=== PATIENT | male | born 1995 | race Caucasian/White ===

== ENCOUNTER 2025-07-19 15:59 | Outpatient (OUT) | payer OTHER, SELFPAY ==
--- OUTSIDE RECORDS SUMMARY | 2021-04-28 09:45 | XMS_ITS | Continuity of Care Document ---
Author Organization [facility] Address [address] [place] [address] Phone Care Team Providers Care Cigarette Roller Name Role Phone Cole Butcher Unavailable Unavailable Procedures Procedure Date COVID-19 Antigen Test Covid Testing [facility] Advance Directives Directive Yes / No Effective Date File Name No Information Encounters Encounter Description Practice Location Reason(s) For Visit Diagnoses Date Provider Providers Copied on Encounter [facility], [address] [place] [place], [place], [id number], [place] tel:[phone] COVID [facility] Encounter For Screening For Covid-19Enc ounter for screening for other viral diseases Stacey Connelly. [address] [place] [place], [place], [id number], [place]. tel:[phone] Family History Family Member Type Diagnosis Age At Onset No Information Payers Payer name Insurance type Covered republican ID Authoriza tion(s) Medical [place] CI [id number] Social History Type Description Quantity Date Captured [...]
[2025-07-19 16:18] LABS: Hematocrit 46.5 % (42.0-54.0); Hemoglobin 16.5 g/dL (14.0-18.0); Immature Granulocytes Abs Auto 0.02 10^3/uL (0.00-0.03); Immature Granulocytes Pct Auto 0.2 % (0.0-0.5); Lymphocytes Absolute Auto 2.2 10^3/uL (1.2-3.8); Mean Corpuscular HGB Conc 35.5 g/dL (29.9-35.2); Mean Corpuscular Hemoglobin 29.5 pg (25.9-34.0); Mean Corpuscular Volume 83.0 fL (80.0-94.0); Platelet Count 381 10^3/uL (150-450); Red Blood Count 5.60 10^6/uL (4.70-6.10); White Blood Count 9.0 10^3/uL (4.0-11.0)
[2025-07-19 16:49] LABS: Alanine Aminotransferase 39 U/L (16-63); Albumin Globulin Ratio 1.2; Albumin Level 4.4 g/dL (3.4-5.0); Alkaline Phosphatase 77 U/L (46-116); Anion Gap 17.9; Aspartate Amino Transferase 15 U/L (15-37); Blood Urea Nitrogen 13.0 mg/dL (7.0-18.0); Calcium 9.4 mg/dL (8.5-10.1); Carbon Dioxide 23.6 mmol/L (21.0-32.0); Chloride 105 mmol/L (98-107); Cholesterol 211 mg/dL (<=200); Estimated GFR (African America >60 (>=60 mL/min/1.73m^2); Estimated GFR (Non-African Ame >60 (>=60 mL/min/1.73m^2); Free T3 2.62 pg/mL (2.18-3.98); Globulin 3.7 g/dL; Glucose 102 mg/dL (74-106); HDL Cholesterol 61 mg/dL (40-60); Potassium 3.5 mmol/L (3.5-5.1); Sodium 143 mmol/L (136-145); Thyroid Stimulating Hormone 3.132 uIU/mL (0.358-3.740); Total Protein 8.1 g/dL (6.4-8.2); Triglycerides 57 mg/dL (<=150); VLDL CHOLESTEROL 11.4 mg/dL
== END 2025-07-19 16:00 | disposition home or self-care (01) ==
PROVIDERS: PCP Family Medicine; Visit Provider Family Medicine
DX: Z00.00 Encounter for general adult medical examination without abnormal findings (principal); E78.5 Hyperlipidemia, unspecified; R73.09 Other abnormal glucose; E03.9 Hypothyroidism, unspecified; Z79.899 Other long term (current) drug therapy; D64.9 Anemia, unspecified
CPT/HCPCS: 36415; 80053; 80061; 83036; 83525; 84436; 84443; 84481; 85025

== ENCOUNTER 2025-08-23 09:24 | Outpatient (OUT) | payer OTHER, SELFPAY ==
--- OUTSIDE RECORDS SUMMARY | 2021-04-28 09:45 | XMS_ITS | Continuity of Care Document ---
Author Organization [facility] Address [address] [place] [address] Phone Care Team Providers Care Security Sergeant Name Role Phone Cole Butcher Unavailable Unavailable Procedures Procedure Date COVID-19 Antigen Test Covid Testing [facility] Advance Directives Directive Yes / No Effective Date File Name No Information Encounters Encounter Description Practice Location Reason(s) For Visit Diagnoses Date Provider Providers Copied on Encounter [facility], [address], [place], [id number], [place] tel:[phone] COVID [facility] Encounter For Screening For Covid-19Enc ounter for screening for other viral diseases Stacey Connelly. [address], [place], [id number], [place]. tel:[phone] Family History Family Member Type Diagnosis Age At Onset No Information Payers Payer name Insurance type Covered constitution party ID Authoriza tion(s) Medical [place] CI [id number] Social History Type Description Quantity Date Captured Comments Alcohol Use Details Unknown Caffeine Use Details Unknown Tobacco Use Status No Information Smoking Status No Information Sex Male Sexual Orientation Straight or heterosexual Gender Identity Male Chief Complaint And Reason For Visit No Information Reason For Referral Reason For Referral No Information History Of Present Illness Encounter Date Complaint History Of Prese nt Illness No Information Functional Status Date Functional Assessmen t No Information Instructions Date Instruction Additional Infor mation No Information Assessments Type Assessment Date assessment Encounter For Screening For Covi d-19 assessment Encounter for screening for othe r viral diseases Patient Care Teams Name Effective Dates (start - stop) Status Members No Information
--- OUTSIDE RECORDS SUMMARY | 2025-08-23 09:30 | XMS_ITS | Patient Health Record ---
Author Organization [facility] [place] Address [address] [place] [address] Care Team Providers Care Delivery Clerk Name Role Phone Angel Lim Primary Care Provider [phone] Allergies No Known Allergies Results Component Value Reference Range Notes INSULIN Reviewed date:07/21/2025 12:54:23 PM Interpretation: Performing Lab: Notes/Report: [facility] , Insulin 15.6 2.6-24.9 uIU/mL Framing Mechanic: Femi Luna PhD, Phone: [phone] [address], [place] [id number] [facility] Performing Lab: see note - [facility] LBTSH Reviewed date:07/20/2025 08:05:35 AM Interpretation: Performing Lab: Notes/Report: [facility] ,Thyroid Stimulating Hormone3.1320.358-3.740 uIU/mLPerforming Lab:see noteML - [facility] LBT4 Reviewed date:07/20/2025 08:05:35 AM Interpretation: Performing Lab: Notes/Report: [facility] ,T4 Pxfpiuugb10.304.50-12.10 ug/dLPerforming Lab:see noteML - [facility] LBPROF 14(COMP METB) Reviewed date:07/20/2025 08:05:35 AM Interpretation: Performing Lab: Notes/Report: [facility] ,Emlyqa247711-199 mmol/LPotassium3.53.5-5.1 mmol/GObbdoduu83629-834 mmol/LCarbon Nvlosbm88.621.0-32.0 mmol/LAnion Gap17.9Sgsggcu99532-011 mg/dLBlood Urea Odpguubt66.07.0-18.0 mg/dLCreatinine0.960.70-1.30 mg/dLEstimated GFR ( Corrie>60>=60 mL/min/1.73m 2Estimated GFR (Non- Renetta>60>=60 mL/min/1.73m 2BUN Creatinine Ratio13.8Zpzdvtn1.48.5-10.1 mg/dLBilirubin Total0.70.2-1.0 mg/dL Aspartate Amino Upjhjdqrysx7012-87 U/LAlanine Wmzrkffunvfhxdwd1927-67 U/L Alkaline Kdrylpldatn6990-367 U/LTotal Protein8.16.4-8.2 g/dLAlbumin Level4.43.4- 5.0 g/dLGlobulin3.7Albumin Globulin Ratio1.2Performing Lab:see noteML - [facility] LBLIPID PROFILE Reviewed date:07/20/2025 08:05:35 AM Interpretation: Performing Lab: Notes/Report: [facility] ,Wihysbzutnjdb48<=150 mg/oTXbevfqsyjmo762<=200 mg/dLHDL Nzfuwetshuw8260-48 mg/dL <40 mg/dl - HIGH CARDIOVASCULAR RISK > or =60 mg/dl - LOW CARDIOVASCULAR RISK LDL Cholesterol Kskyiejlph263.0 <100 mg/dl OPTIMAL 160-189 mg/dl HIGH 100-129 mg/dl NEAR OR ABOVE OPTIMAL >190 mg/dl VERY HIGH 130-159 mg/dl BORDERLINE HIGH VLDL QKKXSIDEHVQ90.4Chol HDL Ratio3.5 >11.0 HIGH RISK 4.4 - 7.1 AVERAGE RISK 7.1 - 11.0 MODERATE RISK 3.3 - 4.4 LOW RISK Performing Lab:see note - [facility] LBGLYCOHEMOGLOBIN A1C Reviewed date:07/19/2025 07:29:59 PM Interpretation: Performing Lab: Notes/Report: [facility] ,Glycohemoglobin A1C5.24.5-6.2 % > 7.0 ADA THERAPEUTIC TARGET < 7.0 ADA RECOMMENDED LIMIT 4.0 - 6.0 ACTION SUGGESTED Estimated Average Kioskgr702Tiuqpchpar Lab:see noteML - [facility] LB FREE T3 Reviewed date:07/20/2025 08:05:35 AM Interpretation: Performing Lab: Notes/Report: [facility] ,Free T32.622.18-3.98 pg/mLPerforming Lab:see noteML - [facility] LB CBC AUTO DIFF Reviewed date:07/19/2025 07:29:59 PM Interpretation: Performing Lab: Notes/Report: [facility] ,White Blood Count9.04.0-11.0 10 3/uLRed Blood Count5.604.70-6.10 10 6/uL Iqebvjwrrq97.514.0-18.0 g/jNGogkioxtha88.542.0-54.0 %Mean Corpuscular Dzwgji74.0 80.0-94.0 fLMean Corpuscular Rdweaugsec37.525.9-34.0 pgMean Corpuscular HGB Conc 35.529.9-35.2 g/dLRed Cell Distribution Width12.211.0-15.0 %Platelet Upcwg797 150-450 10 3/uLMean Platelet Volume9.39.5-13.5 fLNeutrophils Percent Auto68.4 43.0-75.0 %Lymphocytes Percent Auto24.520.5-60.0 %Monocytes Percent Auto6.31.7- 12.0 %Eosinophils Percent Auto0.20.9-7.0 %Basophils Percent Auto0.40.2-2.0 % Immature Granulocytes Pct Auto0.20.0-0.5 %Neutrophils Absolute Auto6.11.4-6.5 10 3/uLLymphocytes Absolute Auto2.21.2-3.8 10 3/uLMonocytes Absolute Auto0.60.3-0.8 10 3/uLEosinophils Absolute Auto0.00.0-0.7 10 3/uLBasophils Absolute Auto0.00.0- 0.1 10 3/uLImmature Granulocytes Abs Auto0.020.00-0.03 10 3/uLPerforming Lab:see noteML - [facility] LB Reason For Referral No Information Medications Medication SIG (Take, Route, Frequency, Duration) Notes Start Date End Date Status Pristiq 100 MG 1 tablet Orally Once a day; Dura tion: 30 days 5Active Social History Tobacco Use: Social History Observation Description Date Details (start date - stop date) Never Smoker NA - NA Tobacco Control (Standard) Question Answer Notes Tobacco use: Nonsmoker AUDIT-C (Standard) Question Answer Notes Did you have a drink containing alcohol in the p ast year? Yes How often did you have a drink containing alcohol in the past year?Monthly or less (1 point)How many drinks did you have on a typical day when you were drinking in the past year?1 or 2 drinks (0 point)How often did you have six or more drinks on one occasion in the past year?2 to 4 times a month (2 points) Jvhnwx3GnjqhtypkvqykuLfnqnhzv Problems Problem Type SNOMED Code ICD Code Onset Dates Problem Status W/U Status Risk Notes Problem Hypothyroidism (02169083) Hypothyroidism (E03.9) ActiveconfirmedProblemAnxiety (23733207)Anxiety (F41.9)Activeconfirmed Vital Signs Blood pressure diastolic 74 mm Hg 07/19/2025 Iicsmj94 in07/19/2025lood pressure aijupjkc168 mm Hg07/19/20256895Sikdhp425 lbs 07/19/2025BMI26.31 kg/m207/19/2025 Encounters Encounter Location Date Provider Diagnosis [address] [address] 07/19/2025 Angel Hoy Anxiety F41.9 and We ll adult Z00.[address] [address] 07/19/2025 Angel Hoy Hypothyroidism E03.[address] [address] 08/03/2025 Angel Hoy Anxiety F41.9 Assessments Encounter Date Diagnosis (ICD Code) Assessment Notes Treatment Notes Treatment Clinical Notes Section Notes 07/19/2025 Anxiety (ICD-10 - F41.9) defers on tpwkhrndec83/24/2025Well adult (ICD-10 - Z00.00)07/19/2025 Hypothyroidism (ICD-10 - E03.9)08/03/2025nxiety (ICD-10 - F41.9) Plan Of Treatment Pending Test Test Name Order Date HEMOGLOBIN A1C (GLYCO) 07/19/2025 INSULIN, TOTAL 07/19/2025 LIPID PANEL (CHOL/TRIG/HDL/LDL) 07/19/20 25 THYROID ANTIBODIES 07/19/2025 THYROID PANEL (T4/TSH/FREE T3) 5 THYROID PANEL (T4/TSH/FREE T3) 5 CMP (COMP MET DOCKERY) w/eGFR CKD-EPI 2024 CBC WITH DIFF 07/19/2025 Insurance Providers Payer Name Payer Address Payer Phone Subscriber Number Group Number Insured Name Patient Relationship to Insured Coverage Start Date Coverage End Date MMO [employer] P[employer] [address] [address] [place] [address] [id number] Kennedy Millan - patient is the spouse of the insured Medical (General) History Surgical History Surgery Date(Month/Year) wisdom teeth removed 2012 tonsils removed 2004
[2025-08-23 10:20] LABS: Free T3 2.78 pg/mL (2.18-3.98); Thyroid Stimulating Hormone 2.761 uIU/mL (0.358-3.740)
== END 2025-08-23 09:25 | disposition home or self-care (01) ==
LOC: LAB 09:26
PROVIDERS: PCP Family Medicine; Visit Provider Family Medicine
DX: E03.9 Hypothyroidism, unspecified (principal)
CPT/HCPCS: 36415; 84436; 84443; 84481; 86376; 86800